=== PATIENT | female | born 1975 | race Caucasian/White ===

== ENCOUNTER 2016-05-16 09:24 | Emergency (ER) | payer OTHER ==
[2016-05-16 09:29] VITALS: O2SAT 93
[2016-05-16] MEDS ORDERED: NS 1,000 ML IV ONE ×2 (09:46→10:11)
--- NOTE | 2016-05-16 10:00 | EDPHY ---
General Narrative: CHIEF COMPLAINT: Vomiting, dark emesis HISTORY OF PRESENT ILLNESS: patient says she woke this morning feeling ill and vomited. She vomited once that was normal vomit, then the 2nd vomit was dark, coffee-ground type emesis. No bright red blood. No chest or abdominal pain other than mild epigastric cramping. No fever or chills. She does have generalized malaise and body aches. She has no chest pain or cough. No bloody stools or dark tarry stools. She has no other associated complaints or modifying factors. She has been on Xarelto since the due to right lower extremity DVT. She actually saw her physician last week to schedule a repeat ultrasound to confirm resolution of the clot but has not had that yet. No other associated complaints or modifying factors. PREVIOUS ABDOMINAL SURGERIES/DIAGNOSES: None NPO: last night REVIEW OF SYSTEMS: Ten systems reviewed and are negative unless otherwise noted in the HPI EXAMINATION: General Appearance: Alert, no distress Head: normocephalic, atraumatic Eyes: Pupils equal and round, no conjunctival pallor or injection. EOMs intact ENT, Mouth: Mucous membranes moist. Uvula midline. No erythema or edema. Airway is widely patent. Neck: Normal inspection, supple, non-tender . No meningismus or rigidity. Respiratory: Lungs are clear to auscultation . No wheezing, rhonchi or crackles. Cardiovascular: Regular rate and rhythm . No murmur. Pulses intact distally. Gastrointestinal: Abdomen is soft and nontender. No tympany. No rigidity. No guarding.Non-acute abdomen. Neurological: A&O, nonfocal, normal gait Skin: Warm and dry, no rash Extremities: Nontender, no pedal edema . No palpable cords. No pain with passive dorsiflexion of the right lower extremity. Range of motion is intact and symmetric to the left leg. Psychiatric: Mood and affect normal DIFFERENTIAL DIAGNOSES: Including but not limited to Coagulopathy, viral illness, influenza, nausea vomiting, gastritis, enteritis MDM: 10:20 a.m. vomiting x2 with 1 of those producing coffee-ground emesis. Patient has recently been on Xarelto. She has no fever or chills. Her vital signs are stable. Her abdominal exam is benign. All obtain the ultrasound the right lower extremity to confirm resolution of the DVT that we can stop her Xarelto with the primary care physicians permission. She is resting comfortably in no acute distress. 11:20 a.m. notified by radiologist that the ultrasound of the right lower extremity is normal. No clot in any location. Patient's laboratory studies are well within normal limits. She is resting comfortably in no acute distress. There is no complaint of pain at this time. She has not vomited since the time of arrival. Vital signs are stable. I feel she is stable for discharge home with discontinuation of the Xarelto. I will contact her primary care physician to discuss this as well. 11:40 a.m. I discussed the case with the patient's primary care physician Dr. Cabrera. She says that can stop the Xarelto the patient may be discharged home. I do agree with this. She is discharged home stable condition with a prescription for Prilosec and she is to follow up with primary care physician this week. Return to ER immediately for any return of hematemesis or persistent vomiting. Patient is comfortable with this plan, I have answered all her questions, and she is discharged home stable condition. ED Precautions: Worsening pain. Fever. Bloody stools. Bloody emesis. Constipation or diarrhea. SUPERVISION: This patient was independently evaluated without the aide of supervising physician. - History Smoking Status: Never smoked - Objective Vital Signs: Initial Vital Signs Temperature (C) 97.5 F 05/16/16 09:27 Heart Rate 86 05/16/16 09:27 Respiratory Rate 17 05/16/16 09:27 Blood Pressure 128/79 H 05/16/16 09:27 O2 Sat (%) 93 05/16/16 09:27 O2 Delivery Mode Room Air Allergies/Adverse Reactions: No Known Allergies Allergy (Unverified 05/16/16 09:29) Home Medications: Medication Instructions Recorded Loestrin 24 Fe Tablet 05/16/16 Omeprazole [Prilosec 20 mg] 20 mg PO DAILY #0 capsule. 05/16/16 Xarelto 05/16/16 Laboratory Results: Laboratory Results 05/16/16 10:10 05/16/16 10:10 05/16/16 05/16/16 05/16/16 11:06 10:10 10:10 WBC RBC Hgb Hct MCV MCH MCHC RDW Plt Count MPV Neut % (Auto) Lymph % (Auto) Davie % (Auto) Eos % (Auto) Baso % (Auto) Nucleat RBC Rel Count Absolute Neuts (auto) Absolute Lymphs (auto) Absolute Monos (auto) Absolute Eos (auto) Absolute Basos (auto) Absolute Nucleated RBC Immature Gran % Immature Gran # PT Pending INR Pending APTT Pending Sodium 146 mEq/L H mEq/L (134-144) Potassium 4.5 mEq/L mEq/L (3.5-5.2) Chloride 108 mEq/L mEq/L (97-110) Carbon Dioxide 25 mEq/l mEq/l (22-31) Anion Gap 13 mEq/L mEq/L (8-16) BUN 13 mg/dL mg/dL (7-23) Creatinine 0.6 mg/dL mg/dL (0.6-1.0) Estimated GFR > 60 Glucose 89 mg/dL mg/dL (70-100) Calcium 9.3 mg/dL mg/dL (8.5-10.4) Total Bilirubin 0.6 mg/dL mg/dL (0.1-1.4) Conjugated Bilirubin 0.5 mg/dL mg/dL (0.0-0.5) Unconjugated Bilirubin 0.1 mg/dL mg/dL (0.0-1.1) AST 33 IU/L IU/L (14-46) ALT 30 IU/L IU/L (9-52) Alkaline Phosphatase 87 IU/L IU/L (38-126) Total Protein 8.1 g/dL g/dL (6.3-8.2) Albumin 4.7 g/dL g/dL (3.5-5.0) Lipase 54.0 IU/L IU/L (23-300) Beta HCG, Qual NEGATIVE 05/16/16 05/16/16 10:10 10:10 WBC 6.08 10^3/uL 10^3/uL (3.80-9.50) RBC 4.75 10^6/uL 10^6/uL (4.18-5.33) Hgb 15.1 g/dL g/dL (12.6-16.3) Hct 43.7 % % (38.0-47.0) MCV 92.0 fL fL (81.5-99.8) MCH 31.8 pg pg (27.9-34.1) MCHC 34.6 g/dL g/dL (32.4-36.7) RDW 11.8 % % (11.5-15.2) Plt Count 288 10^3/uL 10^3/uL (150-400) MPV 10.1 fL fL (8.7-11.7) Neut % (Auto) 82.3 % H % (39.3-74.2) Lymph % (Auto) 13.2 % L % (15.0-45.0) Davie % (Auto) 3.8 % L % (4.5-13.0) Eos % (Auto) 0.0 % L % (0.6-7.6) Baso % (Auto) 0.5 % % (0.3-1.7) Nucleat RBC Rel Count 0.0 % % (0.0-0.2) Absolute Neuts (auto) 5.01 10^3/uL 10^3/uL (1.70-6.50) Absolute Lymphs (auto) 0.80 10^3/uL L 10^3/uL (1.00-3.00) Absolute Monos (auto) 0.23 10^3/uL L 10^3/uL (0.30-0.80) Absolute Eos (auto) 0.00 10^3/uL L 10^3/uL (0.03-0.40) Absolute Basos (auto) 0.03 10^3/uL 10^3/uL (0.02-0.10) Absolute Nucleated RBC 0.00 10^3/uL 10^3/uL (0-0.01) Immature Gran % 0.2 % % (0.0-1.1) Immature Gran # 0.01 10^3/uL 10^3/uL (0.00-0.10) PT REJ INR REJ APTT REJ Sodium Potassium Chloride Carbon Dioxide Anion Gap BUN Creatinine Estimated GFR Glucose Calcium Total Bilirubin Conjugated Bilirubin Unconjugated Bilirubin AST ALT Alkaline Phosphatase Total Protein Albumin Lipase Beta HCG, Qual Medications Given: Discontinued Medications Sodium Chloride (Ns) 1,000 mls @ 0 mls/hr IV ONCE ONE PRN Reason: Wide Open Stop: 05/16/16 09:47 Last Admin: 05/16/16 10:16 Dose: 1,000 mls Sodium Chloride (Ns) 1,000 mls @ 0 mls/hr IV ONCE ONE PRN Reason: Wide Open Stop: 05/16/16 10:12 Last Admin: 05/16/16 11:02 Dose: Not Given Ondansetron HCl (Zofran) 4 mg IVP EDNOW ONE Stop: 05/16/16 10:12 Last Admin: 05/16/16 10:16 Dose: Not Given Departure - Departure Disposition: Home, Routine, Self-Care Clinical Impression: Coffee ground vomiting, Coagulopathy Nausea & vomiting Qualifiers: Vomiting type: unspecified Vomiting Intractability: non-intractable Qualified Code(s): R11.2 - Nausea with vomiting, unspecified Condition: Good Instructions: Acute Nausea and Vomiting (ED) Additional Instructions: follow-up with primary care physician as discussed. Return to the ER for any return of vomiting, fever or abdominal pain Referrals: Katie Cabrera MD [Primary Care Provider] - As per Instructions Stand Alone Forms: Work Excuse Prescriptions: Omeprazole [Prilosec 20 mg] 20 mg PO DAILY #0 capsule.
[2016-05-16] MEDS ORDERED: ONDANSETRON 4 MG/2 ML VIAL IVP ONE (10:11)
[2016-05-16 10:21] LABS: % IMMATURE GRANULYOCYTES 0.2 % (0.0-1.1); ABSOLUTE IMMATURE GRANULOCYTES 0.01 10^3/uL (0.00-0.10); ADD DIFF? NO; ADD MORPH? NO; ADD SCAN? NO; ATYPICAL LYMPHOCYTE FLAG 0 (0-99); FRAGMENT RBC FLAG 0 (0-99); HEMATOCRIT 43.7 % (38.0-47.0); HEMOGLOBIN 15.1 g/dL (12.6-16.3); LEFT SHIFT FLG 0 (0-99); LIPEMIA HEMOLYSIS FLAG 90 (0-99); MEAN CELL HEMOGLOBIN 31.8 pg (27.9-34.1); MEAN CELL HEMOGLOBIN CONCENTR. 34.6 g/dL (32.4-36.7); MEAN PLATELET VOLUME 10.1 fL (8.7-11.7); PLATELET CLUMPS FLAG 40 (0-99); PLATELET COUNT 288 10^3/uL (150-400); RED BLOOD CELL COUNT 4.75 10^6/uL (4.18-5.33); RED CELL DISTRIBUTION WIDTH 11.8 % (11.5-15.2)
[2016-05-16 10:44] LABS: ALANINE AMINOTRANSFERASE 30 IU/L (9-52); ALBUMIN 4.7 g/dL (3.5-5.0); ALKALINE PHOSPHATASE 87 IU/L (38-126); ANION GAP 13 mEq/L (8-16); ASPARTATE AMINOTRANSFERASE 33 IU/L (14-46); BILIRUBIN,TOTAL 0.6 mg/dL (0.1-1.4); BILIRUBIN-CONJUGATED 0.5 mg/dL (0.0-0.5); BILIRUBIN-UNCONJUGATED 0.1 mg/dL (0.0-1.1); CALCIUM 9.3 mg/dL (8.5-10.4); CARBON DIOXIDE 25 mEq/l (22-31); CHLORIDE 108 mEq/L (97-110); CREATININE 0.6 mg/dL (0.6-1.0); GLOMERULAR FILTRATION RATE > 60; GLUCOSE 89 mg/dL (70-100); POTASSIUM 4.5 mEq/L (3.5-5.2); SODIUM 146 mEq/L (134-144); TOTAL PROTEIN 8.1 g/dL (6.3-8.2)
[2016-05-16 11:34] LABS: INR 1.27 (0.83-1.16); PROTIME(PATIENT) 15.9 SEC (12.0-15.0)
[2016-05-16 11:35] LABS: APTT 26.6 SEC (23.0-38.0)
[2016-05-16] MEDS ORDERED: ACETAMINOPHEN 500 MG TAB PO ONE (11:56)
[2016-05-16 12:07] VITALS: BP 115/66; PULSE 90; RESP 16; TEMP 96.9
== END 2016-05-16 12:11 | disposition home or self-care (01) ==
DX: K92.0 Hematemesis (principal); D68.9 Coagulation defect, unspecified; Z79.01 Long term (current) use of anticoagulants
CPT/HCPCS: J2405